=== PATIENT | male | born 1980 | race Caucasian/White ===

== ENCOUNTER 2022-02-14 20:39 | Emergency (ER) | payer OTHER ==
[~2022-02-14] VITALS: Ht 170.2 cm; Wt 70.3 kg
[2022-02-14 21:02] VITALS: BP 120/89
== END 2022-02-14 22:34 | disposition home or self-care (01) ==
LOC: ER 21:07
DX: S50.12XA Contusion of left forearm, initial encounter (principal); W19.XXXA Unspecified fall, initial encounter; Y93.89 Activity, other specified; Y92.89 Other specified places as the place of occurrence of the external cause; Y99.8 Other external cause status
CPT/HCPCS: 99283; 73090; A6403